=== PATIENT | female | born 1930 | race Caucasian/White ===

== ENCOUNTER → 2017-05-09 | Outpatient (CLI) | payer MEDICARE, BC ==
--- NOTE | 2017-05-09 13:35 | MM ---
Reason for exam: additional evaluation requested from prior study. Last mammogram was performed 1 year ago. History: Patient is postmenopausal, has history of breast cancer at age 74, previous chest radiation therapy, and history of other cancer. Benign US biopsy breast VAD RT of the right breast, November 20, 2013. Malignant excisional biopsy of the right breast, November 10, 2005. Lumpectomy of the right breast, November 10, 2005. Malignant right mammotome panel of the right breast, October 20, 2005. Radiation therapy of the right breast. Took estrogen for 24 years 7 months. Took progesterone for 24 years 7 months. Took tamoxifen for 4 years beginning at age 75. Physical Findings: Nurse did not find any significant physical abnormalities on exam. MG 3D Diag Mammo W/Cad BERTO Bilateral CC and MLO view(s) were taken. Prior study comparison: May 08, 2016, bilateral MG 3d diag mammo w/cad BERTO. May 07, 2015, bilateral MG 3d diag mammo w/cad BERTO. The breast tissue is heterogeneously dense. This may lower the sensitivity of mammography. Stable benign calcifications. Stable post biopsy changes in the right breast. No significant new findings when compared with previous films. These results were verbally communicated with the patient and result sheet given to the patient on 05/09/17. ASSESSMENT: Benign, BI-RAD 2 RECOMMENDATION: Follow-up diagnostic mammogram of both breasts in 1 year.
== END | disposition home or self-care (01) ==
LOC: RADMAMWWP 12:37
PROVIDERS: ATTEND Radiology Diagnostic Radiology
DX: Z08 Encounter for follow-up examination after completed treatment for malignant neoplasm (principal); Z85.3 Personal history of malignant neoplasm of breast
CPT/HCPCS: G0204; G0279

== ENCOUNTER → 2018-05-17 | Outpatient (CLI) | payer MEDICARE, BC ==
--- NOTE | 2018-05-17 13:56 | MM ---
Reason for exam: additional evaluation requested from prior study. Last mammogram was performed 1 year ago. History: Patient is postmenopausal, has history of breast cancer at age 74, previous chest radiation therapy, and history of other cancer. Benign US biopsy breast VAD RT of the right breast, November 20, 2013. Malignant excisional biopsy of the right breast, November 10, 2005. Lumpectomy of the right breast, November 10, 2005. Malignant right mammotome panel of the right breast, October 20, 2005. Radiation therapy of the right breast. Took estrogen for 24 years 7 months. Took progesterone for 24 years 7 months. Took tamoxifen for 4 years beginning at age 75. Physical Findings: Nurse did not find any significant physical abnormalities on exam. MG 3D Diag Mammo W/Cad BERTO Bilateral CC and MLO view(s) were taken. Prior study comparison: May 09, 2017, bilateral MG 3d diag mammo w/cad BERTO. May 08, 2016, bilateral MG 3d diag mammo w/cad BERTO. The breast tissue is heterogeneously dense. This may lower the sensitivity of mammography. Previous mammotome biopsy in the right breast. Post surgical changes in the right breast. These results were verbally communicated with the patient and result sheet given to the patient on 05/17/18. ASSESSMENT: Benign, BI-RAD 2 RECOMMENDATION: Routine screening mammogram of both breasts in 1 year.
== END | disposition home or self-care (01) ==
LOC: RADMAMWWP 12:31
PROVIDERS: ATTEND Family Medicine
DX: Z08 Encounter for follow-up examination after completed treatment for malignant neoplasm (principal); Z85.3 Personal history of malignant neoplasm of breast
CPT/HCPCS: 77066; G0279; 77062

== ENCOUNTER 2019-01-23 00:01 | Inpatient (IN) | payer MEDICARE, BC ==
[2019-01-23] MEDS ORDERED: SODIUM CHLORIDE 0.9% 1,000 ML IV STA (00:06)
--- NOTE | 2019-01-23 00:07 | ED ---
Weakness HPI - General Stated complaint: weakness - Related Data Allergies Allergy/AdvReac Type Severity Reaction Status Date / Time No Known Allergies Allergy Verified 01/23/19 00:08 Review of Systems ROS Statement: Those systems with pertinent positive or pertinent negative responses have been documented in the HPI. ROS Other: All systems not noted in ROS Statement are negative. Course Vital Signs 01/23/19 01/23/19 00:04 00:42 Temperature 97.8 F Pulse Rate 54 L 64 Respiratory 16 18 Rate Blood Pressure 167/95 168/86 O2 Sat by Pulse 97 Oximetry EKG Findings - EKG Comments: EKG Findings:: EKG shows A. fib rate of 62, QRS 74, 460 Medical Decision Making - Lab Data Result diagrams: 01/23/19 00:20 01/23/19 00:20 Lab Results 01/23/19 01/23/19 01/23/19 Range/Units 00:20 00:20 00:20 WBC 6.7 (3.8-10.6) k/uL RBC 3.95 (3.80-5.40) m/uL Hgb 11.7 (11.4-16.0) gm/dL Hct 35.5 (34.0-46.0) % MCV 90.0 (80.0-100.0) fL MCH 29.7 (25.0-35.0) pg MCHC 33.0 (31.0-37.0) g/dL RDW 13.6 (11.5-15.5) % Plt Count 217 (150-450) k/uL Neutrophils % 65 % Lymphocytes % 18 % Monocytes % 8 % Eosinophils % 5 % Basophils % 1 % Neutrophils # 4.4 (1.3-7.7) k/uL Lymphocytes # 1.2 (1.0-4.8) k/uL Monocytes # 0.5 (0-1.0) k/uL Eosinophils # 0.3 (0-0.7) k/uL Basophils # 0.1 (0-0.2) k/uL PT (9.0-12.0) sec INR (<1.2) APTT (22.0-30.0) sec Sodium 135 L (137-145) mmol/L Potassium 3.9 (3.5-5.1) mmol/L Chloride 100 (98-107) mmol/L Carbon Dioxide 27 (22-30) mmol/L Anion Gap 8 mmol/L BUN 19 H (7-17) mg/dL Creatinine 1.10 H (0.52-1.04) mg/dL Est GFR (CKD-EPI)AfAm 51 (>60 ml/min/1.73 sqM) Est GFR (CKD-EPI)NonAf 45 (>60 ml/min/1.73 sqM) Glucose 116 H (74-99) mg/dL Plasma Lactic Acid Patrick 1.3 (0.7-2.0) mmol/L Calcium 9.6 (8.4-10.2) mg/dL Phosphorus 3.8 (2.5-4.5) mg/dL Magnesium 1.9 (1.6-2.3) mg/dL Total Bilirubin 0.5 (0.2-1.3) mg/dL AST 27 (14-36) U/L ALT 18 (9-52) U/L Alkaline Phosphatase 133 H (38-126) U/L Creatine Kinase 65 (30-135) U/L Troponin I (0.000-0.034) ng/mL NT-Pro-B Natriuret Pep pg/mL Total Protein 6.8 (6.3-8.2) g/dL Albumin 4.0 (3.5-5.0) g/dL TSH 8.340 H (0.465-4.680) mIU/L 01/23/19 01/23/19 01/23/19 Range/Units 00:20 00:20 00:20 WBC (3.8-10.6) k/uL RBC (3.80-5.40) m/uL Hgb (11.4-16.0) gm/dL Hct (34.0-46.0) % MCV (80.0-100.0) fL MCH (25.0-35.0) pg MCHC (31.0-37.0) g/dL RDW (11.5-15.5) % Plt Count (150-450) k/uL Neutrophils % % Lymphocytes % % Monocytes % % Eosinophils % % Basophils % % Neutrophils # (1.3-7.7) k/uL Lymphocytes # (1.0-4.8) k/uL Monocytes # (0-1.0) k/uL Eosinophils # (0-0.7) k/uL Basophils # (0-0.2) k/uL PT 11.0 (9.0-12.0) sec INR 1.0 (<1.2) APTT 26.4 (22.0-30.0) sec Sodium (137-145) mmol/L Potassium (3.5-5.1) mmol/L Chloride (98-107) mmol/L Carbon Dioxide (22-30) mmol/L Anion Gap mmol/L BUN (7-17) mg/dL Creatinine (0.52-1.04) mg/dL Est GFR (CKD-EPI)AfAm (>60 ml/min/1.73 sqM) Est GFR (CKD-EPI)NonAf (>60 ml/min/1.73 sqM) Glucose (74-99) mg/dL Plasma Lactic Acid Patrick (0.7-2.0) mmol/L Calcium (8.4-10.2) mg/dL Phosphorus (2.5-4.5) mg/dL Magnesium (1.6-2.3) mg/dL Total Bilirubin (0.2-1.3) mg/dL AST (14-36) U/L ALT (9-52) U/L Alkaline Phosphatase (38-126) U/L Creatine Kinase (30-135) U/L Troponin I <0.012 (0.000-0.034) ng/mL NT-Pro-B Natriuret Pep 3450 pg/mL Total Protein (6.3-8.2) g/dL Albumin (3.5-5.0) g/dL TSH (0.465-4.680) mIU/L Disposition Clinical Impression: Cerebrovascular accident, Transient cerebral ischemia, Paresthesia and pain of right extremity Disposition: ADMITTED IP TO THIS HOSP Condition: Fair Is patient prescribed a controlled substance at d/c from ED?: No Referrals: Marques Gaston MD [Primary Care Provider] - 1-2 days
--- NOTE | 2019-01-23 00:43 | XR ---
EXAM: XR Chest, 2 Views CLINICAL HISTORY: Weakness TECHNIQUE: Frontal and lateral views of the chest. COMPARISON: No relevant prior studies available. FINDINGS: Lungs: Hyperinflated lungs suggesting COPD. Question diffuse airspace opacities which may represent point vascular congestion versus an infectious process. Pleural space: Small right-sided pleural effusion. No pneumothorax. Heart: Heart is mildly enlarged. Mediastinum: Unremarkable. Bones/joints: Left shoulder arthroplasty. IMPRESSION: Hyperinflated lungs suggesting COPD. Question diffuse airspace opacities which may represent point vascular congestion versus an infectious process.
[2019-01-23 00:45] LABS: Basophils # (A) 0.1 k/uL (0-0.2); Basophils % (A) 1 %; Eosinophils # (A) 0.3 k/uL (0-0.7); Eosinophils % (A) 5 %; HCT 35.5 % (34.0-46.0); HGB 11.7 gm/dL (11.4-16.0); Lymphocytes # (A) 1.2 k/uL (1.0-4.8); Lymphocytes % (A) 18 %; MCH 29.7 pg (25.0-35.0); Mean Platelet Volume 7.9; Monocytes # (A) 0.5 k/uL (0-1.0); Monocytes % (A) 8 %; Neutrophils # (A) 4.4 k/uL (1.3-7.7); Neutrophils % (A) 65 %; Platelet Count 217 k/uL (150-450); RBC 3.95 m/uL (3.80-5.40); RDW 13.6 % (11.5-15.5); WBC 6.7 k/uL (3.8-10.6)
[2019-01-23 00:55] LABS: Calcium 9.6 mg/dL (8.4-10.2); Magnesium 1.9 mg/dL (1.6-2.3); Phosphorus 3.8 mg/dL (2.5-4.5); Potassium 3.9 mmol/L (3.5-5.1); Total Bilirubin 0.5 mg/dL (0.2-1.3); Total Protein 6.8 g/dL (6.3-8.2)
[2019-01-23 00:58] LABS: Partial Thromboplastin Time 26.4 sec (22.0-30.0)
--- NOTE | 2019-01-23 01:42 | CT ---
EXAM: CT Head Without Intravenous Contrast CLINICAL HISTORY: Pain TECHNIQUE: Axial computed tomography images of the head/brain without intravenous contrast. CTDI is 0.085, 0.085, 49.1 mGy and DLP is 1211.4 mGy-cm. This CT exam was performed using one or more of the following dose reduction techniques: automated exposure control, adjustment of the mA and/or kV according to patient size, and/or use of iterative reconstruction technique. COMPARISON: No relevant prior studies available. FINDINGS: Brain: No acute infarct or hemorrhage. Chronic small vessel ischemic disease and senescent changes. Ventricles: Hyperdense lesion measuring 6 mm seen along the floor of the third ventricle which may represent colloid cysts. Bones/joints: Unremarkable. No acute fracture. Soft tissues: Unremarkable. Sinuses: Mild mucosal thickening of paranasal sinuses. Mastoid air cells: Partial opacification left mastoid air cells. IMPRESSION: 1. No acute infarct or hemorrhage. 2. Hyperdense lesion measuring 6 mm seen along the floor of the third ventricle which may represent colloid cysts.
[2019-01-23] MEDS ORDERED: ASPIRIN 325 MG TAB PO STA (02:20)
[2019-01-23] MEDS: SODIUM CHLORIDE 0.9% 1,000 ML IV SCH ×2 (02:46→20:40)
[2019-01-23 03:50] LABS: Appearance,Urine Clear (Clear); Bilirubin,Urine Negative (Negative); Blood,Urine Negative (Negative); Color,Urine Light Yellow; Glucose,Urine (UA) Negative (Negative); Ketones,Urine Negative (Negative); Leukocyte Esterase,Urine Trace (Negative); Nitrite,Urine Negative (Negative); PH, Urine 7.5 (5.0-8.0); Protein,Urine Negative (Negative); RBC,Urine 2 /hpf (0-5); Specific Gravity,Urine 1.006 (1.001-1.035); Squamous Epithelial Cell,Urine <1 /hpf (0-4); Urobilinogen,Urine <2.0 mg/dL (<2.0); WBC,Urine 4 /hpf (0-5)
[2019-01-23 06:23] LABS: Glucose,Whole Blood 62 mg/dL (75-99)
[2019-01-23 07:01] LABS: Glucose,Whole Blood 141 mg/dL (75-99)
--- NOTE | 2019-01-23 08:19 | US ---
EXAMINATION TYPE: US carotid duplex BILAT DATE OF EXAM: 01/23/2019 COMPARISON: NONE CLINICAL HISTORY: Stenosis. Right sided numbness, TIA, exam done portable. EXAM MEASUREMENTS: RIGHT: Peak Systolic Velocity (PSV) cm/sec ----- Right CCA: 37.4 ----- Right ICA: 161.9 ----- Right ECA: 60.8 ICA/CCA ratio: 4.3 RIGHT: End Diastole cm/sec ----- Right CCA: 13.5 ----- Right ICA: 44.5 ----- Right ECA: 0.0 LEFT: Peak Systolic Velocity (PSV) cm/sec ----- Left CCA: 55.2 ----- Left ICA: 154.3 ----- Left ECA: 192.1 ICA/CCA ratio: 2.8 LEFT: End Diastole cm/sec ----- Left CCA: 13.6 ----- Left ICA: 28.8 ----- Left ECA: 20.8 VERTEBRALS (direction of flow): Right Vertebral: Antegrade Left Vertebral: Antegrade Rhythm: Arrhythmia Difficult study due to torturous bilateral ICA Bilateral intimal thickening, plaque bilateral bulb, elevated velocities: right prox ICA, left prox I CA and left prox ECA, right ICA/CCA ratio 4.3, left ICA/CCA ratio 2.8 IMPRESSION: 1. Cardiac arrhythmia. Correlate with EKG. 2. 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 CTA neck could more accurately assess the degree of stenosis. Criteria for Assigning % of Stenosis / Diameter reduction (Estimation based on the indirect measurements of the internal carotid artery velocities (ICA PSV). 1. Normal (no stenosis)=ICA PSV < 125 cm/s: ratio < 2.0: ICA EDV<40 cm/s. 2. Less than 50% stenosis=ICA PSV < 125 cm/s: ratio < 2.0: ICA EDV<40 cm/s. 3. 50 to 69% stenosis=ICA PSV of 125 to 230 cm/s: ration 2.0 ? 4.0: ICA EDV 40-100 cm/s. 4. Greater than 70% stenosis to near occlusion= ICA PSV > 230 cm/s: ratio > 4.0: ICA EDV > 100 cm/s. 5. Near occlusion= ICA PSV velocities may be low or undetectable: variable ratio and ICA EDV. 6. Total occlusion=unable to detect flow.
[2019-01-23] MEDS ORDERED: APIXABAN 2.5 MG TABLET PO SCH (09:30)
[2019-01-23] MEDS: DILTIAZEM ORAL 60 MG TAB PO SCH ×2 (09:57→20:40)
[2019-01-23] MEDS: FUROSEMIDE 20 MG TAB PO SCH (09:58)
[2019-01-23] MEDS: METOPROLOL TARTRATE 50 MG TAB PO SCH ×2 (09:58→20:40)
[2019-01-23] MEDS: CHOLECALCIFEROL 1,000 UNIT TAB PO SCH (09:58)
[2019-01-23] MEDS: ISOSORBIDE MONONITRATE ER 30 MG TAB.ER.24H PO SCH (09:58)
--- NOTE | 2019-01-23 10:24 | ECHOF ---
Referral Reason:Thrombus MEASUREMENTS -------- HEIGHT: 152.4 cm WEIGHT: 58.1 kg BP: 178/83 IVSd: 0.8 cm (0.6 - 1.1) LVIDd: 3.0 cm (3.9 - 5.3) LVPWd: 0.8 cm (0.6 - 1.1) IVSs: 1.5 cm LVIDs: 1.7 cm LVPWs: 1.5 cm LAESV Index (A-L): 42.28 ml/m Ao Diam: 2.7 cm (2.0 - 3.7) AV Cusp: 1.1 cm (1.5 - 2.6) LA Diam: 4.3 cm (2.7 - 3.8) MV EXCURSION: 12.039 mm (> 18.000) MV EF SLOPE: 145 mm/s (70 - 150) EPSS: 0.2 cm MV E Westley: 1.41 m/s MV DecT: 204 ms MV A Westley: 0.37 m/s MV E/A Ratio: 3.79 AV maxP.37 mmHg AV meanP.21 mmHg RAP: 15.00 mmHg RVSP: 61.48 mmHg FINDINGS -------- Atrial fibrillation. This was a technically good study. The left ventricular size is normal. Left ventricular wall thickness is normal. Overall left vent ricular systolic function is normal with, an EF between 55 - 60 %. Increased LAP Grade 2 Diastolic Dysfunction. The right ventricle is normal in size. LA is severely dilated >40 ml/m2 The right atrial size is normal. Interatrial and interventricular septum intact. Aortic valve is trileaflet and is mildly thickened. There is mild aortic stenosis present. Peak/m curtis gradient across the Aortic Valve is 11.37mmHg / 5.21mmHg. The mitral valve leaflets are mildly thickened. Mild mitral annular calcification present. Modera te mitral regurgitation is present. Mild tricuspid regurgitation present. There is moderate pulmonary hypertension. The right ventric ular systolic pressure, as measured by Doppler, is 61.48mmHg. There is no pulmonic regurgitation present. The aortic root size is normal. The inferior vena cava is mildly dilated. There is no pericardial effusion. CONCLUSIONS -------- 1. Atrial fibrillation. 2. This was a technically good study. 3. The left ventricular size is normal. 4. Left ventricular wall thickness is normal. 5. Overall left ventricular systolic function is normal with, an EF between 55 - 60 %. 6. Increased LAP Grade 2 Diastolic Dysfunction. 7. The right ventricle is normal in size. 8. LA is severely dilated >40 ml/m2 9. The right atrial size is normal. 10. Interatrial and interventricular septum intact. 11. Aortic valve is trileaflet and is mildly thickened. 12. There is mild aortic stenosis present. 13. Peak/mean gradient across the Aortic Valve is 11.37mmHg / 5.21mmHg. 14. The mitral valve leaflets are mildly thickened. 15. Mild mitral annular calcification present. 16. Moderate mitral regurgitation is present. 17. Mild tricuspid regurgitation present. 18. There is moderate pulmonary hypertension. 19. The right ventricular systolic pressure, as measured by Doppler, is 61.48mmHg. 20. There is no pulmonic regurgitation present. 21. The aortic root size is normal. 22. The inferior vena cava is mildly dilated. 23. There is no pericardial effusion. RELIGIOUS EDUCATOR: Brianna Rubio RDCS
[2019-01-23 11:53] LABS: Glucose,Whole Blood 108 mg/dL (75-99)
--- NOTE | 2019-01-23 16:47 | P.HPIM ---
History of Present Illness H&P Date: 01/23/19 Chief Complaint: Right arm numbness History of presenting complaint: This is a very pleasant 88-year-old patient of Dr. Gaston. Chronic stable medical conditions include hypertension, peripheral neuropathy, coronary artery disease with prior [place]. Patient presents with the right arm becoming numb last night. There is very subtle weakness. She did improve but not back to baseline. Does current diet like sensation. No headaches, no change in vision. No difficulty walking. Initial computed tomography scan was negative. Neurology was consulted. Patient presently requesting and again again to go back home. No prior history of stroke etc. Review of systems: GEN.: None EYES: None HEENT: None NECK: None RESPIRATORY: None CARDIOVASCULAR: None GASTROINTESTINAL: None GENITOURINARY: None MUSCULOSKELETAL: Some pain in the joints LYMPHATICS: None HEMATOLOGICAL: None PSYCHIATRY: None NEUROLOGICAL: [As above Past medical history to include: Hypertension, myocardial infarction 85, coronary bypass, peripheral neuropathy Social history: This smoke in the remote past. Alcohol seldom. Lives alone. Is a . Family history: Cardiac issues Physical examination: VITAL SIGNS: 97.8, 54, 16, 167/95, 96% room air GENERAL: Average built, sitting up, comfortable. EYES: Pupils equal. Conjunctiva normal. HEENT: External appearance of nose and ears normal, oral cavity grossly normal. NECK: JVD not raised; masses not palpable. HEART: First and second heart sounds are normal; no edema. LUNGS: Respiratory rate normal; clear to auscultation. ABDOMEN: Soft, nontender, liver spleen not palpable, no masses palpable. PSYCH: Alert and oriented x3; mood and affect normal. NEUROLOGICAL: Cranial nerves grossly intact; no facial asymmetry, power equal and symmetrical, mildly decreased sensation in the right upper extremity. 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 Slight decreased sensation. Computed tomography scan is negative for any acute event. It's possible this could be a radicular manifestation from spinal stenosis at the cervical level. Stroke cannot be ruled out at this point. -Persistent atrial flutter, rate controlled -Moderate mitral regurgitation, nontraumatic -Essential hypertension -Coronary artery disease with a prior history of coronary bypass -Peripheral neuropathy, idiopathic Plan: Patient has been put on aspirin. Given the atrial flutter. Patient has been started on eliquis. We'll also do a cervical spine computed tomography scan to rule out any radiculopathy. We'll also add Lipitor. Even though patient is very keen to, like to watch for another 24 hours. Neurology has been consulted. Care was discussed with the patient.. Past Medical History Past Medical History: Cancer, Hypertension, Myocardial Infarction ([place]) Last Myocardial Infarction Date:: 1985 History of Any Multi-Drug Resistant Organisms: None Reported Past Surgical History: Back Surgery, Coronary Bypass/CABG Additional Past Surgical History / Comment(s): (R) partial mastectomy Past Anesthesia/Blood Transfusion Reactions: No Reported Reaction Past Psychological History: No Psychological Hx Reported Smoking Status: Former smoker Past Alcohol Use History: None Reported Past Drug Use History: None Reported - Past Family History Father Additional Family Medical History / Comment(s): cardiac issues. Medications and Allergies Home Medications Medication Instructions Recorded Confirmed Type Apixaban [Eliquis] 2.5 mg PO DAILY 01/23/19 01/23/19 History Cholecalciferol [Vitamin D3 (25 1,000 unit PO Q24HR 01/23/19 01/23/19 History Mcg = 1000 Iu)] Diltiazem Oral [Cardizem*] 60 mg PO BID 01/23/19 01/23/19 History Furosemide [Lasix] 20 mg PO DAILY 01/23/19 01/23/19 History Gabapentin [Neurontin] 100 mg PO HS 01/23/19 01/23/19 History Isosorbide Mononitrate ER [Imdur] 30 mg PO DAILY 01/23/19 01/23/19 History Metoprolol Tartrate [Lopressor] 50 mg PO BID 01/23/19 01/23/19 History Nitroglycerin Sl Tabs [Nitrostat] 0.4 mg SUBLINGUAL Q5M PRN 01/23/19 01/23/19 History Allergies Allergy/AdvReac Type Severity Reaction Status Date / Time No Known Allergies Allergy Verified 01/23/19 00:08 Physical Exam Vitals: Vital Signs Temp Pulse Pulse Resp BP BP Pulse Ox 01/23/19 12:00 98.5 F 56 L 14 122/60 98 01/23/19 11:59 70 18 01/23/19 08:00 97.6 F 70 18 191/110 97 01/23/19 04:00 97.2 F L 77 16 178/83 95 01/23/19 02:56 65 20 160/89 97 01/23/19 00:42 64 18 168/86 97 01/23/19 00:04 97.8 F 54 L 16 167/95 Intake and Output 01/23/19 01/23/19 01/23/19 06:59 14:59 22:59 Intake Total 462 Output Total 600 Balance -138 Intake: Oral 462 Output: Urine 600 Other: Voiding Method Toilet Toilet # Voids 2 Weight 58.6 kg Results CBC & Chem 7: 01/23/19 00:20 01/23/19 00:20 Labs: Abnormal Lab Results - Last 24 Hours (Table) 01/23/19 01/23/19 01/23/19 Range/Units 00:20 03:30 06:22 Sodium 135 L (137-145) mmol/L BUN 19 H (7-17) mg/dL Creatinine 1.10 H (0.52-1.04) mg/dL Glucose 116 H (74-99) mg/dL POC Glucose (mg/dL) 62 L (75-99) mg/dL Alkaline Phosphatase 133 H (38-126) U/L TSH 8.340 H (0.465-4.680) mIU/L Ur Leukocyte Esterase Trace H (Negative) 01/23/19 01/23/19 Range/Units 07:00 11:52 Sodium (137-145) mmol/L BUN (7-17) mg/dL Creatinine (0.52-1.04) mg/dL Glucose (74-99) mg/dL POC Glucose (mg/dL) 141 H 108 H (75-99) mg/dL Alkaline Phosphatase (38-126) U/L TSH (0.465-4.680) mIU/L Ur Leukocyte Esterase (Negative) Microbiology - Last 24 Hours (Table) 01/23/19 03:30 Urine Culture - Preliminary Urine,Voided Thrombosis Risk Factor Assmnt - Choose All That Apply Any of the Below Risk Factors Present?: Yes Each Risk Factor Represents 3 Points: Age 75 years or older Thrombosis Risk Factor Assessment Total Risk Factor Score: 3 Thrombosis Risk Factor Assessment Level: Moderate Risk
--- NOTE | 2019-01-23 16:52 | CT ---
EXAMINATION TYPE: CT cervical spine wo con DATE OF EXAM: 01/23/2019 COMPARISON: HISTORY: Right arm numbness. CT DLP: 253.2 mGycm CONTRAST: None CT of the cervical spine is performed in the axial plane at 2 mm thick sections. Reconstructed image s in the coronal, and sagittal plane are reviewed on the computer. No acute fractures are evident. There is a grade 1 spondylolisthesis of C3 anterior on C4. Posterior spinal lamellar line appears int act. There is loss of disc height throughout the cervical spine. Vertebral body heights are preserved. No AP spinal canal stenosis is present. There are some mild endplate spur is present. Uncovertebral joint hypertrophy has moderate left and severe right foraminal stenosis C3-4. Mild fora tana narrowing is present bilaterally C4-5. Uncovertebral joint hypertrophy at C5-6 and C6-7 has sev ere bilateral foraminal stenosis. IMPRESSIONS: 1. Uncovertebral joint hypertrophy contributing to foraminal stenosis discussed above. 2. Diffuse loss of disc height throughout the cervical spine. 3. Grade 1 spondylolisthesis of C3 anteriorly on C4.
[2019-01-23 16:53] LABS: Glucose,Whole Blood 102 mg/dL (75-99)
[2019-01-23 17:22] LABS: Cholesterol 136 mg/dL (<200); HDL Cholesterol 54 mg/dL (40-60); LDL Cholesterol,Calculated 61 mg/dL (0-99); Triglycerides 107 mg/dL (<150)
--- NOTE | 2019-01-23 19:07 | CT ---
EXAMINATION TYPE: CT angio neck DATE OF EXAM: 01/23/2019 HISTORY: Carotid stenosis. Hx CVA, TIA, paresthesia COMPARISON: None CT DLP: 317.3 mGycm. Automated Exposure Control for Dose Reduction was Utilized. TECHNIQUE: CTA scan of the neck is performed with IV Contrast, patient injected with 370 mL of Isovu e 370, axial images are obtained, coronal and sagittal reformatted images are reviewed. Three-D recon structed images are created on an independent workstation and reviewed. FINDINGS: Thoracic aorta is atheromatous. There is normal branching pattern of the great vessels on the aortic arch. There is arterial flow in both subclavian arteries. There is arterial flow in the common internet consultant al and external carotid arteries bilaterally. There is arterial flow in the vertebrobasilar artery sy stem. There is bilateral flow in the vertebral arteries. There is no evidence of carotid artery aneur ysm or dissection. There is no evidence of vertebral artery dissection. There is 50% stenosis at the origin of the left external carotid artery. There is similar 75% stenosis at the origin of the right external carotid artery. There is 50% focal stenosis of the origin of the left internal carotid arter y.: IMPRESSION: There is 50% stenosis of the origin left internal carotid artery. There is moderate stenosis of the o rigins of the external carotid arteries bilaterally.
[2019-01-23 20:37] LABS: Glucose,Whole Blood 114 mg/dL (75-99)
[2019-01-23] MEDS: APIXABAN 2.5 MG TABLET PO SCH (20:41)
[2019-01-23] MEDS ORDERED: ATORVASTATIN 40 MG TAB PO SCH (21:00)
[2019-01-23] MEDS ORDERED: ATORVASTATIN 80 MG TAB PO SCH (21:00)
[2019-01-23] MEDS ORDERED: GABAPENTIN 100 MG CAP PO SCH (21:00)
--- NOTE | 2019-01-24 00:10 | CONS ---
CONSULTATION DATE OF SERVICE: 01/23/2019 HISTORY OF PRESENT ILLNESS: Thank you for allowing me to evaluate Amber Soares, who is an 88-year-old right-handed white female who presented to [facility] [place] on 01/23/2019 for evaluation of symptoms which developed last night while she was watching television. The patient states that she abruptly developed a numb sensation involving the right upper extremity from the shoulder down in addition to a sensation of weakness. There was no numbness involving the right side of the face, right lower extremity, and left side was asymptomatic. She denied associated facial droop, vertigo, diplopia, dysarthria, difficulty chewing/swallowing. The patient states these symptoms lasted several hours and gradually resolved. She denied associated neck pain or Lhermitte's phenomenon. At this time the patient states the right upper extremity still feels "tired" but denied numbness. The patient denies previous history of stroke or seizure. The patient is supposed to be maintained on Eliquis although apparently suspended Eliquis therapy on 01/07/2019 in anticipation of melanoma removal from the left ear. She just restarted Eliquis on the day these symptoms developed, although states that she restarted this at half the prescribed dose (and had also been taking half the prescribed dose prior to holding Eliquis), as she was trying to make the pills last to minimize co-pays. She has not been taking aspirin in addition to the Eliquis. ALLERGIES: NO KNOWN DRUG ALLERGIES. HOME MEDICATIONS: 1. Eliquis. (The patient had been taking a half dose and just restarted yesterday.). 2. Nitro sublingual. 3. Lopressor. 4. Imdur. 5. Neurontin 100 mg at bedtime. 6. Lasix. 7. Cardizem. 8. Vitamin D. PAST MEDICAL HISTORY: 1. Chronic atrial fibrillation. 2. Hypertension. 3. Previous myocardial infarction. 4. Abdominal aortic aneurysm. 5. Arthritis. 6. Neuropathy. 7. Melanoma. PAST SURGICAL HISTORY: 1. Lumbar laminectomy x2. 2. Angioplasty x2. 3. Appendectomy. 4. Left shoulder replacement. 5. Bilateral cataract extraction. SOCIAL HISTORY: The patient quit smoking in 1985 and previously smoked up to 2-1/2 packs per day for 30 years. She denied alcohol consumption. She is a with 3 children and lives in a house by herself. She does not use any assistive devices to ambulate on a consistent basis but does have a cane and walker available to her. FAMILY HISTORY: The patient's parents are with a history of heart disease. REVIEW OF SYSTEMS: Fourteen systems are reviewed and no additional points are identified. The review of systems is documented in the history and physical. PHYSICAL EXAMINATION: Upon my arrival in the patient's room, she was lying in bed, receptive to the examiner. Affect is anxious. She is an accurate although tangential historian. Granddaughter is at the bedside. The patient appears stated age. VITAL SIGNS: Blood pressure is 132/60 with a pulse of 56, respiratory rate 14, temperature 98.5, weight 58.6 kg on a 5-foot 0-inch frame. SKIN AND EXTREMITIES: Arthritic changes are noted in the hands. HEAD AND NECK: The patient has gauze taped over the left ear related to recent melanoma resection. Neck is supple without meningeal signs. Arteries are nontender and without bruits. HEART: Irregularly irregular. HIGHER CORTICAL FUNCTION: MENTAL STATUS: Patient was alert, oriented to self. She knew she was in [facility]. She knew the floor, year, month, day of the week and could name the current president. She was able to able to name, repeat and read. Speech was fluent and she followed commands readily. There was no right/left disorientation, agnosia, extinction to double simultaneous stimulation or dysarthria. CRANIAL NERVES II THROUGH XII: II: Pupils are post-surgical and reactive to light symmetrically. No afferent pupillary defect. Visual king are intact to confrontation. III, IV, : No ptosis. Extraocular movements are full. No nystagmus. V: Pinprick, light touch intact in all 3 divisions. Motor 5 intact. VII: No facial asymmetry or weakness. Acuity intact to finger rub. IX, X: Palate janeth in the midline. XI: Trapezius strength intact. XII: Tongue protruded in midline without fasciculation or atrophy. MOTOR EXAMINATION: There is no pronator drift. There is reduced bulk in the hand regions with muscles with normal tone, and no involuntary movements are noted. Strength is 5/5 throughout except at the left ankle dorsiflexion, which is 5-/5. Sensory intact to pinprick and light touch in all extremities. Reflexes; right side listed first: biceps 2+,+; brachioradialis 2,2; triceps 2+,2+; patella +,+; ankle 2,2. Plantar response is flexor bilaterally. Jasso's is absent. COORDINATION: Cciuqb-zn-xlac, rntu-xd-zjti movements are intact. Rapid alternating movements are symmetric with finger tapping. DIAGNOSTIC TESTING: Patient had a CT scan of the brain with and without contrast which demonstrated no acute pathology. There was atrophy, moderate small-vessel ischemic change and a 6 mm third ventricle lesion suspected to represent a colloid cyst. There was no associated ventriculomegaly/hydrocephalus. LAB WORK: White blood cell count of 6.7 with a hemoglobin of 11.7, platelet count 217. Sodium 135, potassium 3.9, BUN 19 with creatinine 1.1. INR 1.0, calcium 9.6, ALT 18, AST of 27, magnesium 1.9. CPK 65, troponin negative. BNP 3450. TSH was elevated at 8.34. Telemetry has revealed atrial fibrillation with controlled ventricular response. Urinalysis revealed 4 WBCs and 2 RBCs, trace leukocyte esterase, negative nitrate. Carotid ultrasound demonstrated 50% to 69% stenosis of both internal carotid arteries and antegrade flow in the vertebral arteries. Echocardiogram demonstrated ejection fraction of 55% to 60%. Left ventricular size was normal. Left atrial size was severely dilated. There was moderate mitral regurgitation and moderate pulmonary hypertension. IMPRESSION: 1. Transient right upper extremity numbness/weakness which lasted several hours and spontaneously resolved, likely secondary to a left hemispheric transient ischemic attack versus stroke. The etiology of this event may be secondary to large vessel atherosclerotic disease versus cardioembolic phenomenon. Risk factors for stroke include hypertension, atrial fibrillation, age, and the patient is a known vasculopath with coronary/carotid occlusive disease. The patient has been maintained on Eliquis; however, suspended Eliquis therapy from 01/07/2019 and just restarted yesterday at half dose. Even before suspending therapy, the patient was taking half dose Eliquis in order to make the pills last and minimize co-pays. 2. Stenosis of 50% to 69% of both internal carotid arteries per ultrasound. It is unclear if the left side is symptomatic. 3. Recent melanoma resection from the left ear. 4. Status post lumbar laminectomy x2 with distal lower extremity paresthesias. 5. Elevated TSH; defer to your expertise. 6. Medical problems, including arthritis, previous myocardial infarction and abdominal aortic aneurysm. 7. 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 RECOMMENDATIONS: 1. I discussed my impression and plan with the patient and her granddaughter, and they expressed understanding. 2. Will obtain CTA of the neck vessels for further evaluation of the carotid ultrasound results. I also offered to pursue MRI of the brain with diffusion- weighted images to see if the patient had sustained a small stroke, although she declined this, as she is severely claustrophobic. 3. Echocardiogram demonstrated severely dilated left atrium with ejection fraction 55% to 60%, moderate mitral regurgitation and moderate pulmonary hypertension. 4. The need to take full-dose Eliquis was stressed to the patient. 5. Risk factor modification. Consider initiating a statin. 6. Will follow with you. Thank you for allowing me to participate in the care of your patient. MMODL / IJN: [id number] /
[2019-01-24] MEDS: SODIUM CHLORIDE 0.9% 1,000 ML IV SCH ×2 (01:18→16:18)
[2019-01-24 04:25] VITALS: RESP 16
[2019-01-24 05:57] LABS: Glucose,Whole Blood 93 mg/dL (75-99)
[2019-01-24] MEDS: DILTIAZEM ORAL 60 MG TAB PO SCH (08:34)
[2019-01-24] MEDS: APIXABAN 2.5 MG TABLET PO SCH (08:35)
[2019-01-24] MEDS: CHOLECALCIFEROL 1,000 UNIT TAB PO SCH (08:35)
[2019-01-24] MEDS: ISOSORBIDE MONONITRATE ER 30 MG TAB.ER.24H PO SCH (08:35)
[2019-01-24] MEDS: METOPROLOL TARTRATE 50 MG TAB PO SCH (08:35)
[2019-01-24] MEDS: FUROSEMIDE 20 MG TAB PO SCH (08:35)
[2019-01-24 08:39] VITALS: TEMP 97.3
[2019-01-24] MEDS ORDERED: ASPIRIN 81 MG PO SCH (09:00)
[2019-01-24] MEDS ORDERED: ASPIRIN 325 MG TAB PO SCH (09:00)
--- NOTE | 2019-01-24 09:32 | PN ---
PROGRESS NOTE DATE OF SERVICE: 01/24/2019 I had the pleasure of re-evaluating Amber Soares who currently denies new complaints. She denies recurrent right-sided symptoms and states she is anxious to go home. She promised that upon discharge she would take Eliquis at the prescribed dose. CURRENT MEDICATIONS: Eliquis, aspirin 81 mg daily, Lipitor 40 mg daily, vitamin D, Cardizem, Lasix, Neurontin, Imdur, and Lopressor. PHYSICAL EXAM: Upon my arrival to the patient's room, she was lying in bed, receptive to the examiner. Affect is normal and she is an accurate historian. Nursing staff states the patient has continued to remain in atrial fibrillation with a controlled response. VITAL SIGNS: Blood pressure is 138/65 with a pulse of 56, respiratory rate 16, temperature 97.8. SKIN AND EXTREMITIES: Arthritic changes are noted in the hands. The patient has gauze taped over the left ear related to recent melanoma resection. HEART: Irregularly irregular. HIGHER CORTICAL FUNCTION: MENTAL STATUS: Patient was alert, oriented to time, place and person. Speech was fluent and there was no dysarthria, comprehension was intact. CRANIAL NERVES II THROUGH XII: Demonstrate postsurgical pupils. Hearing acuity is reduced to finger rub. The patient is hard of hearing. The remainder of the cranial nerves are intact. MOTOR EXAMINATION: No pronator drift. There is reduced bulk in hand intrinsic muscles with normal tone. Strength is 5/5 throughout except at the left ankle dorsiflexion which is 5-/5. Sensory intact to light touch in all extremities. Plantar responses flexor bilaterally. Jasso's is absent. COORDINATION: Bacafy-im-pehs, pvpa-pc-ksbf movements are intact. Rapid movements are symmetric with finger tapping. DIAGNOSTIC TESTING: The patient had a CTA of the neck vessels, which demonstrated 50% stenosis of the left internal carotid artery, no significant stenosis was mentioned of the right internal carotid artery. CT of the cervical spine completed on 01/23/2019 demonstrated grade 1 spondylolisthesis of C3 anteriorly on C4, there was uncovertebral joint hypertrophy contributing to foraminal stenosis. However, the body of the report mentions that no AP spinal canal stenosis was present. IMPRESSION: 1. Transient right upper extremity weakness/numbness, likely secondary to left hemispheric transient ischemic attack versus stroke. The etiology of this event is likely cardioembolic in nature versus a large vessel atherosclerotic disease. Risk factors for a stroke include hypertension, atrial fibrillation, age and the patient is a known vasculopath with coronary/carotid occlusive disease. The patient was taking Eliquis at half dose at the time of this event and had suspended therapy recently in anticipation of melanoma resection from the left ear. 2. Left carotid stenosis of 50% per CTA and 50%-69% per ultrasound, it is unclear if this is a symptomatic vessel. 3. Status post lumbar laminectomy x2 with distal lower extremity paresthesias. 4. Elevated TSH, deferred. 5. 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 6. Grade 1 spondylolisthesis of C3 over C4 on CT of the cervical spine without evidence of spinal stenosis. RECOMMENDATION: 1. I discussed my impression and results of diagnostic testing with the patient as well as nursing staff. 2. We will obtain Vascular Surgery consultation regarding the left carotid stenosis. If Vascular Surgery does not feel this is a symptomatic vessel, the patient may be discharged from a neurologic standpoint on full dose Eliquis and a statin. The need to take the appropriate dose of Eliquis was again stressed to the patient. 3. Risk factor modification. 4. Please feel free to contact me if there are further questions from a neurologic standpoint. Thank you for allowing me to participate in the care of the patient. MMODL / IJN: [id number] /
[2019-01-24 11:28] LABS: Hemoglobin A1C 6.1 % (4.0-6.0)
[2019-01-24 11:59] LABS: Glucose,Whole Blood 104 mg/dL (75-99)
[2019-01-24 16:27] VITALS: BP 129/83; PULSE 71
[2019-01-24 17:04] LABS: Glucose,Whole Blood 99 mg/dL (75-99)
--- NOTE | 2019-01-24 18:27 | P.GSCN ---
History of Present Illness Consult date: 01/24/19 History of present illness: The patient is an 88-year-old female who presented to the hospital for evaluation of symptoms of right upper extremity numbness/weakness. She denies ever having symptoms like this in the past. She denies any lower extremity issues. She denies any changes in vision or facial droop. She denies any word finding difficulties. She has no further issues with her arm at this time upon evaluation. She does have a known history of chronic atrial fibrillation, hypertension, previous myocardial infarction, neuropathy, and recently diagnosed melanoma of her left ear area. She is supposed to be taking Eliquis with twice a day but in anticipation of her removal of the melanoma on her ear she self discontinued this. She denies any chest pains or shortness of breath. She denies any nausea vomiting or diarrhea. Past Medical History Past Medical History: Cancer, Hypertension, Myocardial Infarction (CA) Last Myocardial Infarction Date:: 1985 History of Any Multi-Drug Resistant Organisms: None Reported Past Surgical History: Back Surgery, Coronary Bypass/CABG Additional Past Surgical History / Comment(s): (R) partial mastectomy Past Anesthesia/Blood Transfusion Reactions: No Reported Reaction Past Psychological History: No Psychological Hx Reported Smoking Status: Former smoker Past Alcohol Use History: None Reported Past Drug Use History: None Reported - Past Family History Father Additional Family Medical History / Comment(s): cardiac issues. Medications and Allergies Home Medications Medication Instructions Recorded Confirmed Type Cholecalciferol [Vitamin D3 (25 1,000 unit PO Q24HR 01/23/19 01/23/19 History Mcg = 1000 Iu)] Diltiazem Oral [Cardizem*] 60 mg PO BID 01/23/19 01/23/19 History Furosemide [Lasix] 20 mg PO DAILY 01/23/19 01/23/19 History Gabapentin [Neurontin] 100 mg PO HS 01/23/19 01/23/19 History Isosorbide Mononitrate ER [Imdur] 30 mg PO DAILY 01/23/19 01/23/19 History Metoprolol Tartrate [Lopressor] 50 mg PO BID 01/23/19 01/23/19 History Nitroglycerin Sl Tabs [Nitrostat] 0.4 mg SUBLINGUAL Q5M PRN 01/23/19 01/23/19 History Apixaban [Eliquis] 2.5 mg PO BID #60 tablet 01/24/19 Rx Aspirin 81 mg PO DAILY #30 chew 01/24/19 Rx Atorvastatin [Lipitor] 40 mg PO HS #30 tab 01/24/19 Rx Allergies Allergy/AdvReac Type Severity Reaction Status Date / Time No Known Allergies Allergy Verified 01/23/19 00:08 Surgical - Exam Vital Signs Temp Pulse Resp BP 97.8 F 54 L 16 167/95 01/23/19 00:04 01/23/19 00:04 01/23/19 00:04 01/23/19 00:04 Gen. is a pleasant cooperative female in no acute distress HEENT is normal cephalic atraumatic, etc. he motion intact Heart is regular rate and rhythm at this time Lungs are clear to auscultation bilaterally Abdomen is soft, nontender, nondistended Bilateral lower extremity is warm and dry. Adequate capillary refill Psych, normal mood and affect Cranial nerves II through XII grossly intact, no evidence of weakness in the extremities Results - Labs 01/23/19 00:20 01/23/19 00:20 Abnormal Lab Results - Last 24 Hours (Table) 01/23/19 01/23/19 01/24/19 Range/Units 00:20 20:31 11:45 POC Glucose (mg/dL) 114 H 104 H (75-99) mg/dL Hemoglobin A1c 6.1 H (4.0-6.0) % Microbiology - Last 24 Hours (Table) 01/23/19 03:30 Urine Culture - Final Urine,Voided Diabetes panel 01/23/19 Range/Units 00:20 Hemoglobin A1c 6.1 H (4.0-6.0) % - Imaging Additional studies: CTA of the neck, and carotid duplex are reviewed. 50%-69% stenosis of the bilateral internal carotid artery Assessment and Plan Assessment: #1 bilateral internal carotid artery stenosis #2 isolated right upper extremity numbness/weakness, resolved #3 paroxysmal atrial fibrillation #4 claustrophobia #5 history of CA #6 recent melanoma diagnosis left ear Plan: At this point long discussion was had with the patient regarding the question of this possibly being symptomatic versus asymptomatic carotid artery stenosis. She does not appear to have significant stenosis on imaging, likely closer to the 55-60%% rather than the higher end of the spectrum given her peak systolic velocities. The patient refused to undergo an MRI to evaluate for possible infarcts to determine. She would like to go home. A long discussion was had with her regarding the outcomes and possibilities if this truly is asymptomatic stenosis. At this time she still desires to go home. We would have her follow up in the office for a repeat ultrasound and follow for surveillance. She should follow up with the neurologist and possibly consider undergoing a an MRI with sedation. She should continue aspirin and statin medication along with her anticoagulation as recommended. She is to return to the hospital or call our office immediately if she begins having issues with strokelike symptoms which were discussed. She seemingly understands the risk. All questions are answered.
--- NOTE | 2019-01-26 00:03 | P.DS ---
Providers Date of admission: 01/23/19 02:20 Expected date of discharge: 01/24/19 Attending physician: Kike Molina Consults: 01/23/19 02:20 Consult Physician Routine Consulting Provider: Ike Schneider Consult Reason/Comments: cva,tia Do you want consulting provider notified?: Yes 01/24/19 08:31 Consult Physician Stat Consulting Provider: Johanne Phillips Consult Reason/Comments: carotid blockage Do you want consulting provider notified?: Yes 01/24/19 12:07 Consult Physician Routine Consulting Provider: Edgar Hobbs Consult Reason/Comments: carotid stenosis Do you want consulting provider notified?: Yes Primary care physician: Joaquim Gaston [facility] Course: Chief Complaint: Right arm numbness Hospital course: This is a very pleasant 88-year-old patient of Dr. Gaston. Chronic stable medical conditions include hypertension, peripheral neuropathy, coronary artery disease with prior PR. Patient presents with the right arm becoming numb last night. There is very subtle weakness. She did improve but not back to baseline. Does current diet like sensation. No headaches, no change in vision. No difficulty walking. Initial computed tomography scan was negative. Neurology was consulted. Patient presently requesting and again again to go back home. No prior history of stroke etc. Patient is seen by Dr. Schneider from neurology. It was felt to be possible TIA. Patient has not been taking eliquis. This could have been embolic. Eliquis was resumed. Care was discussed the patient Consultations: Dr. Schneider from neurology Dr. Phillips from vascular Physical examination: VITAL SIGNS: Pulse 71 and respirations 16 blood pressure 129 with 83 pulse 96% room air GENERAL: Average built, sitting up, comfortable. EYES: Pupils equal. Conjunctiva normal. HEENT: External appearance of nose and ears normal, oral cavity grossly normal. NECK: JVD not raised; masses not palpable. HEART: First and second heart sounds are normal; no edema. LUNGS: Respiratory rate normal; clear to auscultation. ABDOMEN: Soft, nontender, liver spleen not palpable, no masses palpable. PSYCH: Alert and oriented x3; mood and affect normal. NEUROLOGICAL: Cranial nerves grossly intact; no facial asymmetry, power equal and symmetrical, mildly decreased sensation in the right upper extremity. MUSCULOSKELETAL: Evidence of osteoarthritis especially in the hands and knees Investigations,: White count 6.7 hemoglobin 11.7 platelets 217 potassium 3.9 BUNs and 19 creatinine 1.1 Accu-Cheks 62, 141, 108 EKG tracing personally reviewed by me shows atrial flutter, with controlled ventricular rate 2-D echocardiogram shows EF of 50-60%, moderate mitral regurgitation -Chest x-ray film personally reviewed by me shows borderline cardiomegaly -Computed tomography scan of the brain-do not report any acute event Cervical spine CTA-some foraminal stenosis, diffuse loss of disc height throughout the cervical spine Neck CTA showed 50% stenosis of the left internal carotid artery at its origin Discharge diagnosis: -TIA, possible left MCA territory. Embolic cannot be ruled out -Persistent atrial flutter, rate controlled -Moderate mitral regurgitation, nontraumatic -Essential hypertension -Coronary artery disease with a prior history of coronary bypass -Peripheral neuropathy, idiopathic Disposition: Home Patient Condition at Discharge: Stable Plan - Discharge Summary Discharge Rx Participant: No New Discharge Prescriptions: New Aspirin 81 mg PO DAILY #30 chew Atorvastatin [Lipitor] 40 mg PO HS #30 tab Continue Diltiazem Oral [Cardizem*] 60 mg PO BID Furosemide [Lasix] 20 mg PO DAILY Isosorbide Mononitrate ER [Imdur] 30 mg PO DAILY Gabapentin [Neurontin] 100 mg PO HS Metoprolol Tartrate [Lopressor] 50 mg PO BID Nitroglycerin Sl Tabs [Nitrostat] 0.4 mg SUBLINGUAL Q5M PRN PRN Reason: Chest Pain Cholecalciferol [Vitamin D3 (25 Mcg = 1000 Iu)] 1,000 unit PO Q24HR Changed Apixaban [Eliquis] 2.5 mg PO BID #60 tablet Discharge Medication List Cholecalciferol [Vitamin D3 (25 Mcg = 1000 Iu)] 1,000 unit PO Q24HR 01/23/19 [History] Diltiazem Oral [Cardizem*] 60 mg PO BID 01/23/19 [History] Furosemide [Lasix] 20 mg PO DAILY 01/23/19 [History] Gabapentin [Neurontin] 100 mg PO HS 01/23/19 [History] Isosorbide Mononitrate ER [Imdur] 30 mg PO DAILY 01/23/19 [History] Metoprolol Tartrate [Lopressor] 50 mg PO BID 01/23/19 [History] Nitroglycerin Sl Tabs [Nitrostat] 0.4 mg SUBLINGUAL Q5M PRN 01/23/19 [History] Apixaban [Eliquis] 2.5 mg PO BID #60 tablet 01/24/19 [Rx] Aspirin 81 mg PO DAILY #30 chew 01/24/19 [Rx] Atorvastatin [Lipitor] 40 mg PO HS #30 tab 01/24/19 [Rx] Follow up Appointment(s)/Referral(s): Marques Gaston MD [Primary Care Provider] - 01/31/19 1:40 pm (Sunday) Johanne Phillips DO [STAFF PHYSICIAN] - 4 Weeks (Office is closed. Please call to schedule appointment) Halle Mojica MD [Medical Doctor] - 2 Weeks (Office is closed. Please call to schedule appointment) Patient Instructions/Handouts: Transient Ischemic Attack (ED), Carotid Artery Disease (DC) Discharge Disposition: HOME SELF-CARE
== END 2019-01-24 17:37 | disposition home or self-care (01) | DRG 68 ==
LOC: EC 00:01 → 3SCARD 02:20
PROVIDERS: ADMIT Hospitalist; ATTEND Hospitalist
DX: I66.02 Occlusion and stenosis of left middle cerebral artery (principal); I48.92 Unspecified atrial flutter; C43.9 Malignant melanoma of skin, unspecified; F40.240 Claustrophobia; G62.9 Polyneuropathy, unspecified; I10 Essential (primary) hypertension; I25.10 Atherosclerotic heart disease of native coronary artery without angina pectoris; I25.2 Old myocardial infarction; I34.0 Nonrheumatic mitral (valve) insufficiency; I48.0 Paroxysmal atrial fibrillation; I65.23 Occlusion and stenosis of bilateral carotid arteries; M19.90 Unspecified osteoarthritis, unspecified site; M43.12 Spondylolisthesis, cervical region; Z79.01 Long term (current) use of anticoagulants; Z79.82 Long term (current) use of aspirin; Z79.899 Other long term (current) drug therapy; Z85.820 Personal history of malignant melanoma of skin; Z87.891 Personal history of nicotine dependence; Z95.1 Presence of aortocoronary bypass graft; Z96.612 Presence of left artificial shoulder joint; Z98.41 Cataract extraction status, right eye; Z98.42 Cataract extraction status, left eye; R20.2 Paresthesia of skin
CPT/HCPCS: 36415; 70450; 70498; 71046; 72125; 80053; 80061; 81001; 82550; 83036; 83605; 83735; 83880; 84100; 84443; 84484; 85025; 85610; 85730; 87086; 93005; 93306; 93880; 96360; 96361; 99285

== ENCOUNTER → 2019-07-17 | Outpatient (CLI) | payer MEDICARE, BC ==
--- NOTE | 2019-07-21 09:31 | MM ---
Reason for exam: screening (asymptomatic). Last mammogram was performed 1 year and 2 months ago. History: Patient is postmenopausal, has history of breast cancer at age 74, previous chest radiation therapy, and history of other cancer. Benign US biopsy breast VAD RT of the right breast, November 20, 2013. Malignant excisional biopsy of the right breast, November 10, 2005. Lumpectomy of the right breast, November 10, 2005. Malignant right mammotome panel of the right breast, October 20, 2005. Radiation therapy of the right breast. Took estrogen for 24 years 7 months. Took progesterone for 24 years 7 months. Took tamoxifen for 4 years beginning at age 75. Physical Findings: A clinical breast exam by your physician is recommended on an annual basis and results should be correlated with mammographic findings. MG 3D Screening Mammo W/Cad Bilateral CC and MLO view(s) were taken. Prior study comparison: May 17, 2018, bilateral MG 3d diag mammo w/cad BERTO. May 09, 2017, bilateral MG 3d diag mammo w/cad BERTO. The breast tissue is heterogeneously dense. This may lower the sensitivity of mammography. Previous mammotome biopsy in the right breast post surgical and post therapy changes right breast. Benign oil cyst calcifications on the left. No significant changes when compared with prior studies. ASSESSMENT: Benign, BI-RAD 2 RECOMMENDATION: Routine screening mammogram of both breasts in 1 year.
== END | disposition home or self-care (01) ==
LOC: RADMAMWWP 14:51
PROVIDERS: ATTEND Family Medicine
DX: Z12.31 Encounter for screening mammogram for malignant neoplasm of breast (principal); Z85.3 Personal history of malignant neoplasm of breast
CPT/HCPCS: 77063; 77067